=== PATIENT | male | born 1990 | race Caucasian/White ===

== ENCOUNTER 2017-12-19 18:08 | Emergency (ER) | payer MEDICAID, OTHER ==
[2017-12-19] MEDS: PENICILLIN V K 250 MG TAB PO (22:52)
[2017-12-19] MEDS: ONDANSETRON (ODT) 4 MG TAB ODT (22:52)
[2017-12-19] MEDS: HYDROCODONE/APAP (10/325) TAB PO (22:52)
== END 2017-12-19 22:55 | disposition home or self-care (01) ==
LOC: E/R 22:55
DX: K02.9 Dental caries, unspecified (principal); K04.7 Periapical abscess without sinus
CPT/HCPCS: 99283; Z7502